=== PATIENT | female | born 1995 | race Caucasian/White ===

== ENCOUNTER 2016-10-21 23:59 | Inpatient (IN) | payer MEDICAID ==
[~2016-10-21] VITALS: Ht 157.5 cm; Wt 56.8 kg
[2016-10-22 02:08] LABS: ALBUMIN 3.7 g/dL (3.4-5.0); ALKALINE PHOSPHATASE 54 U/L (46-116); ALT/SGPT 23 U/L (14-59); AST/SGOT 20 U/L (15-37); BILIRUBIN TOTAL 0.53 mg/dL (0.20-1.00); CALCIUM 8.9 mg/dL (8.5-10.1); CARBON DIOXIDE 25.7 mmol/L (21-32); CHLORIDE SERUM 103 mmol/L (98-107); CREATININE SERUM 0.9 mg/dL (0.6-1.0); GFR1 > 60 mL/min; GLUCOSE SERUM 123 mg/dL (74-106); SODIUM SERUM 139 mmol/L (136-145); TOTAL PROTEIN, SERUM 7.4 g/dL (6.4-8.2)
[2016-10-22 02:09] LABS: CK-MB < 0.5 ng/mL (0-3.6); CREATINE KINASE 104 U/L (26-192)
[2016-10-22 02:11] LABS: FREE T4 1.13 ng/dL (0.76-1.46); FREE THYROXINE INDEX 2.5 ug/dL (1.4-4.5); T4(THYROXINE) 8.4 ug/dL (4.7-13.3)
[2016-10-22 02:14] LABS: BASOPHIL % 0.2 % (0-2); PLATELET COUNT 216 x10^3mcL (130-400); RED CELL DISTRIBUTION WIDTH 12.6 % (11.5-14.5)
[2016-10-22 02:17] LABS: POTASSIUM SERUM 2.8 mmol/L (3.5-5.1)
[2016-10-22 02:26] LABS: T3 TOTAL 0.76 ng/mL
[2016-10-22 02:54] LABS: microscopic required? YES; urine erythrocyte 2+ (NEGATIVE)
[2016-10-22 04:33] LABS: MAGNESIUM 1.7 mg/dL (1.8-2.4)
[2016-10-22 04:36] LABS: CHOLESTEROL/HDL RATIO 3.1
[2016-10-22 04:48] LABS: AMPHETAMINE QUAL UR NONE DETECTED (NEG <=1000)
[2016-10-22 04:58] VITALS: BP 96/59
[2016-10-22 10:46] VITALS: BP 99/56
[2016-10-22 17:30] VITALS: BP 95/63
[2016-10-22 20:23] VITALS: BP 106/70
[2016-10-23] VITALS (7 sets, daily range): BP systolic 89–109; BP diastolic 54–70
[2016-10-23 05:36] LABS: BASOPHIL % 0.3 % (0-2); PLATELET COUNT 188 x10^3mcL (130-400); RED CELL DISTRIBUTION WIDTH 12.8 % (11.5-14.5)
[2016-10-23 05:58] LABS: CALCIUM 8.4 mg/dL (8.5-10.1); CHLORIDE SERUM 105 mmol/L (98-107); CREATININE SERUM 0.6 mg/dL (0.6-1.0); GFR1 > 60 mL/min; GLUCOSE SERUM 69 mg/dL (74-106); MAGNESIUM 1.9 mg/dL (1.8-2.4); PHOSPHOROUS 2.4 mg/dL (2.5-4.9); SODIUM SERUM 140 mmol/L (136-145)
[2016-10-24 06:04] VITALS: BP 109/63
[2016-10-24 06:47] LABS: CALCIUM 8.2 mg/dL (8.5-10.1); CARBON DIOXIDE 26.4 mmol/L (21-32); CHLORIDE SERUM 106 mmol/L (98-107); CREATININE SERUM 0.6 mg/dL (0.6-1.0); GFR1 > 60 mL/min; GLUCOSE SERUM 79 mg/dL (74-106); POTASSIUM SERUM 3.5 mmol/L (3.5-5.1); SODIUM SERUM 141 mmol/L (136-145)
[2016-10-24 06:54] LABS: BASOPHIL % 0.5 % (0-2); PLATELET COUNT 175 x10^3mcL (130-400); RED CELL DISTRIBUTION WIDTH 13.5 % (11.5-14.5)
[2016-10-24 09:09] VITALS: BP 102/70
[2016-10-24 12:36] VITALS: BP 94/56
[2016-10-24 17:00] VITALS: BP 108/70
[2016-10-24 21:03] VITALS: BP 95/56
[2016-10-25 05:18] VITALS: BP 105/70
[2016-10-25 06:52] LABS: BASOPHIL % 0.5 % (0-2); PLATELET COUNT 239 x10^3mcL (130-400); RED CELL DISTRIBUTION WIDTH 12.9 % (11.5-14.5)
[2016-10-25 07:22] LABS: CALCIUM 8.7 mg/dL (8.5-10.1); CARBON DIOXIDE 23.4 mmol/L (21-32); CHLORIDE SERUM 105 mmol/L (98-107); CREATININE SERUM 0.5 mg/dL (0.6-1.0); GFR1 > 60 mL/min; GLUCOSE SERUM 86 mg/dL (74-106); PHOSPHOROUS 5.1 mg/dL (2.5-4.9); POTASSIUM SERUM 4.6 mmol/L (3.5-5.1); SODIUM SERUM 140 mmol/L (136-145)
[2016-10-25 09:13] VITALS: BP 107/68
[2016-10-25 16:10] VITALS: BP 103/70
[2016-10-25 21:36] VITALS: BP 102/61
[2016-10-26 05:19] VITALS: BP 109/68
[2016-10-26 09:32] VITALS: BP 102/63
[2016-10-26 13:21] VITALS: BP 106/69
[2016-10-26] MEDS ORDERED: LEVAQUIN750 MG PO (14:12)
[2016-10-26] MEDS ORDERED: LAC PO (14:13)
[2016-10-26] MEDS ORDERED: COLACE100 MG PO (14:13)
[2016-10-26] MEDS ORDERED: NOR10T PO (14:13)
[2016-10-26 14:54] VITALS: BP 106/69
== END 2016-10-26 15:47 | disposition home or self-care (01) | DRG 720 ==
LOC: ED 23:59 → DU 10-22 03:58 → MU 10-22 03:58 → DU 10-22 04:50 → MU 10-22 10:23 → DU 10-23 01:41 → MU 10-24 10:22
PROVIDERS: Family Medicine; Specialist; ADMIT Family Medicine
DX: A41.9 Sepsis, unspecified organism (principal); N17.0 Acute kidney failure with tubular necrosis; N10 Acute pyelonephritis; B96.89 Other specified bacterial agents as the cause of diseases classified elsewhere; E87.6 Hypokalemia; E83.42 Hypomagnesemia; E83.39 Other disorders of phosphorus metabolism; D64.9 Anemia, unspecified; R31.29 Other microscopic hematuria; K59.00 Constipation, unspecified; Z68.22 Body mass index [BMI] 22.0-22.9, adult
CPT/HCPCS: 80307; 83880; 84439; 87804; J0696; J1885; J1956; J2405; J3475; J3480; J7030; Q0092

== ENCOUNTER 2017-04-24 23:12 | Emergency (ER) | payer OTHER ==
[~2017-04-24] VITALS: Ht 157.5 cm; Wt 56.2 kg
[~2017-04-24 23:12] MED LIST: COLACE100 MG PO; LAC PO; LEVAQUIN750 MG PO; NOR10T PO
[2017-04-25 00:38] VITALS: BP 106/75
== END 2017-04-25 00:38 | disposition home or self-care (01) ==
LOC: ED 23:12
DX: R07.89 Other chest pain (principal)
CPT/HCPCS: J1885; Q0092